=== PATIENT | male | born 1980 | race Hispanic/Latino ===

== ENCOUNTER 2024-02-13 23:15 | Emergency (ER) | payer BC | END 2024-02-14 00:17 | disposition home or self-care (01) | LOC: BURERS 23:15 | DX: I10 Essential (primary) hypertension (principal); G47.00 Insomnia, unspecified; Z55.6 Problems related to health literacy; Z79.899 Other long term (current) drug therapy | CPT/HCPCS: 93005 ==

== ENCOUNTER 2025-04-02 08:37 | Outpatient (CLI) | payer BC ==
[2025-04-02] MEDS ORDERED: Iopamidol 370 76% 100 ML VIAL ONE (12:28)
== END 2025-04-02 08:38 | disposition home or self-care (01) ==
LOC: BURCT 08:37
PROVIDERS: ATTEND Nurse Practitioner Family
DX: R10.84 Generalized abdominal pain (principal); N28.89 Other specified disorders of kidney and ureter
CPT/HCPCS: 74177; Q9967

== ENCOUNTER 2025-04-23 07:56 | Outpatient (CLI) | payer BC ==
[2025-04-23 08:25] LABS: Calc. Creatinine Clearance 0.0 mL/min (70-130)
[2025-04-23] MEDS ORDERED: Iopamidol 370 76% 100 ML VIAL ONE (13:12)
== END 2025-04-23 07:57 | disposition home or self-care (01) ==
LOC: BURCT 07:56
PROVIDERS: ATTEND Nurse Practitioner Family
DX: Z01.818 Encounter for other preprocedural examination (principal); N28.1 Cyst of kidney, acquired
CPT/HCPCS: 36415; 74178; 82565; Q9967